=== PATIENT | male | born 1975 | race Caucasian/White ===

== ENCOUNTER 2017-10-28 13:27 | Emergency (ER) | payer OTHER, MEDICAID ==
[2017-10-28] MEDS ORDERED: HYDROmorphONE/DILAUDID 1 MG/ML INJ ONE (13:32)
[2017-10-28] MEDS ORDERED: ONDANSETRON 4 MG/2 ML VIAL IVP ONE (13:33)
[2017-10-28] MEDS ORDERED: HYDROmorphONE/DILAUDID 1 MG/ML INJ IVP ONE ×2 (13:33→13:46)
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
[2017-10-28 13:52] LABS: INR 0.89 (0.83-1.16); PROTIME(PATIENT) 12.3 SEC (12.0-15.0)
[2017-10-28] MEDS ORDERED: KETOROLAC 30 MG/1 ML SDV IVP ONE (14:54)
[2017-10-28 14:58] VITALS: BP 124/74; PULSE 75; RESP 18; TEMP 98.2; O2SAT 95
== END 2017-10-28 16:20 | disposition home or self-care (01) ==
DX: S70.12XA Contusion of left thigh, initial encounter (principal); F15.10 Other stimulant abuse, uncomplicated; V19.49XA Pedal cycle driver injured in collision with other motor vehicles in traffic accident, initial encounter; Y92.410 Unspecified street and highway as the place of occurrence of the external cause; Y93.89 Activity, other specified
CPT/HCPCS: 71260; 72125; 73551; 74177; 96374; 99285; J1170; 82947-QW; G0480

== ENCOUNTER 2017-12-13 17:17 | Emergency (ER) | payer OTHER, MEDICAID ==
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
[2017-12-13 17:34] VITALS: BP 102/90
== END 2017-12-13 17:38 ==
LOC: EDUNIT#

== ENCOUNTER 2018-08-23 03:05 | Emergency (ER) | payer OTHER, MEDICAID ==
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
[2018-08-23 03:12] VITALS: BP 112/86
== END 2018-08-23 03:17 ==
LOC: EDUNIT#
DX: Z02.89 Encounter for other administrative examinations (principal); H57.13 Ocular pain, bilateral; T59.91XA Toxic effect of unspecified gases, fumes and vapors, accidental (unintentional), initial encounter; F10.920 Alcohol use, unspecified with intoxication, uncomplicated; Z59.0 Homelessness